=== PATIENT | female | born 1950 | race Caucasian/White ===

== ENCOUNTER → 2017-05-02 | Outpatient (CLI) | payer OTHER, MEDICARE ==
[~2017-05-02] MED LIST: ?BP MED; ALBUTEROL17 GM INH; LIPITOR PO; LORTAB 7.5-5001 TAB PO; MOBIC PO; SINGULAIR PO; TAMIFLU75 MG PO
--- NOTE | ~2017-05-02 | CR127 ---
[facility]. [facility] A Service of [facility] RADIOLOGY TEXT RESULTS PATIENT: KARI CROSS LOCATION: [facility] : 52 UNIT #: [id number] AGE: [address]: Jeffrey Arora MD SEX: F ORDER DR: [id number] [address] [address] [id number] O MR#: [id number] Acc #: [id number] NAME: KARI CROSS : 1950 SEX: F STUDY DATE/TIME: 05/02/2017 15:47 UNIT: [facility] ROOM: STUDY DESCRIPTION: CR Foot Complete Min 3 View Rt Attending Physician: Jeffrey Arora M.D. Referring Physician: Jeffrey Arora M.D. Ordering Physician: Jeffrey Arora M.D. Primary Care Physician: Jeffrey Arora M.D. MEDICAL IMAGING REPORT This report is preliminary unless electronic signature is present. EXAM Right foot 05/02/2017 INDICATIONS 66-year-old female with ankle and foot pain on the right for 4 weeks. Swollen ankle. No known injury. TECHNIQUE Three views were performed. No comparisons. FINDINGS No acute fracture. There is degenerative change of the first MTP joint. Mild degenerative change in the midfoot. No focal erosive change. IMPRESSION 1. Degenerative change. No acute fracture. Dictated by... Ren Patricio M.D. THIS IS AN ELECTRONICALLY VERIFIED REPORT Ren Patricio M.D. at 05/03/2017 6:50 AM CAMILLA/lissette TD: 05/03/2017 05:22 JOB #: [id number] MEDICAL IMAGING REPORT Page 1 of 1
--- NOTE | ~2017-05-02 | CR21 ---
[facility]. [facility] A Service of [facility] & [facility] RADIOLOGY TEXT RESULTS PATIENT: KARI CROSS LOCATION: [facility] : 52 UNIT #: [id number] AGE: [address]: Jeffrey Arora MD SEX: F ORDER DR: [id number] [address] [address] [id number] O MR#: [id number] Acc #: [id number] NAME: KARI CROSS : 1950 SEX: F STUDY DATE/TIME: 05/02/2017 15:47 UNIT: [facility] ROOM: STUDY DESCRIPTION: CR Ankle Min 3 Views Rt Attending Physician: Jeffrey Arora M.D. Referring Physician: Jeffrey Arora M.D. Ordering Physician: Jeffrey Arora M.D. Primary Care Physician: Jeffrey Arora M.D. MEDICAL IMAGING REPORT This report is preliminary unless electronic signature is present. EXAM Right ankle 3 views HISTORY Ankle and foot pain for 4 weeks. No known injury. FINDINGS 3 views of the right ankle demonstrates no fracture or dislocation or arthritic inflammatory change. Bone mineralization appears normal. Soft tissues unremarkable. IMPRESSION Negative right ankle. Dictated by... Tyler Tovar M.D. THIS IS AN ELECTRONICALLY VERIFIED REPORT Tyler Tovar M.D. at 05/03/2017 4:03 PM GISELA/rock TD: 05/03/2017 07:48 JOB #: [id number] MEDICAL IMAGING REPORT Page 1 of 1
== END | disposition home or self-care (01) ==
LOC: SRAD 15:44
DX: M19.071 Primary osteoarthritis, right ankle and foot (principal); M25.571 Pain in right ankle and joints of right foot
CPT/HCPCS: 73610; 73630